=== PATIENT | male | born 2005 | race Caucasian/White ===

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

== ENCOUNTER 2023-09-19 10:48 | Outpatient (CLI) | payer SELFPAY | END 2023-09-19 23:59 | LOC: UTC.OUT 10:51 | PROVIDERS: Visit Provider Nurse Practitioner Family | DX: Z02.4 Encounter for examination for driving license (principal) ==